=== PATIENT | male | born 1955 | race African-American/Black ===

== ENCOUNTER 2018-08-07 07:17 | Day surgery (SDC) | payer OTHER ==
[2018-08-07] MEDS ORDERED: MIDAZOLAM 1 MG/ML 2 ML INJ (09:40)
[2018-08-07] MEDS ORDERED: FENTAnyl 50 MCG/ML VIAL (09:40)
[2018-08-07] MEDS: BUPIVACAINE 0.5% (SDV) 30 ML INJ (09:45)
[2018-08-07] MEDS: LIDOCAINE 2% (MDV) 20 ML INJ (09:45)
[2018-08-07] MEDS: POLYMYXIN/BACITRACIN 1L IRRIG (10:01)
[2018-08-07] MEDS ORDERED: ONDANSETRON 4 MG INJ (11:01)
[2018-08-07] MEDS ORDERED: PROPOFOL 20 ML (11:01)
[2018-08-07] MEDS ORDERED: LIDOCAINE 2% (SDV) 5 ML INJ (11:01)
[2018-08-07] MEDS ORDERED: CEFAZOLIN 1 GM INJ (11:01)
[2018-08-07] MEDS ORDERED: FENTAnyl 50 MCG/ML VIAL IV (11:30)
[2018-08-07] MEDS ORDERED: HYDROmorphONE 1 MG/5 ML IV SYRINGE IV ×2 (11:30)
[2018-08-07] MEDS ORDERED: ONDANSETRON 4 MG INJ IV (11:30)
[2018-08-07] MEDS ORDERED: DIPHENHYDRAMINE 50 MG INJ IV (11:30)
[2018-08-07] MEDS ORDERED: METOCLOPRAMIDE 10 MG INJ IV (11:30)
[2018-08-07] MEDS ORDERED: MEPERIDINE 25 MG INJ IV (11:30)
== END 2018-08-07 12:40 | disposition home or self-care (01) ==
LOC: SDS 07:17
DX: M20.21 Hallux rigidus, right foot (principal); M19.071 Primary osteoarthritis, right ankle and foot; I10 Essential (primary) hypertension; E78.5 Hyperlipidemia, unspecified
CPT/HCPCS: 28289; 73630; 88304; 88311